=== PATIENT | male | born 1950 | race Caucasian/White ===

== ENCOUNTER 2017-04-07 18:47 | Emergency (ER) | payer OTHER, BC ==
[~2017-04-07] VITALS: Ht 180.3 cm; Wt 95.4 kg
[2017-04-07 20:57] LABS: MCH 28.4 PG (29.0-34.0); MCHC 33.3 G/DL (30.0-36.0); MCV 85.3 FL (86-99); MEAN PLAT.VOLUME 10.1 uM^3 (9.0-12.4); PLATELET COUNT 262 K/uL (156-360); RBC DIS.WIDTH-CV 13.7 % (11.8-14.6); RBC DIS.WIDTH-SD 42.6 % (39-53); RED BLOOD COUNT 5.04 M/uL (4.00-5.50); WHITE BLOOD COUNT 10.8 K/uL (4.1-10.2)
[2017-04-07 21:05] LABS: ADD MIUA? YES; BILIRUBIN NEGATIVE; BLOOD NEGATIVE; COLOR STRAW ((YELLOW)); GLUCOSE (STRIP) NEGATIVE; KETONES NEGATIVE; LEUKOCYTES MODERATE; NITRITE NEGATIVE; PROTEIN (STRIP) NEGATIVE; SPECIFIC GRAVITY 1.004 (1.000-1.030); UROBILINOGEN 0.2 MG/DL (0.2-1.0)
[2017-04-07 21:07] LABS: CHLORIDE 108 mEq/L (99-109); SODIUM 142 mEq/L (136-147)
[2017-04-07 21:09] LABS: BACTERIA RARE /HPF; EPITHELIAL CELLS NONE SEEN /HPF; MUCUS NONE SEEN /LPF; RED BLOOD CELLS 0-5 /HPF (0-5); WHITE BLOOD CELLS 0-5 /HPF (0-5)
[2017-04-07 21:10] LABS: GLUCOSE 137 mg/dL (70-99)
[2017-04-07 21:11] LABS: ANION GAP 10 MEQ/L (2-14)
[2017-04-07 21:12] LABS: TOTAL BILIRUBIN 0.5 mg/dL (0.0-1.0)
[2017-04-07 21:13] LABS: ALKALINE PHOSPHATASE 167 IU/L (3-129); GFR ESTIMATE (CALCULATED) > 59 mL/min/
[2017-04-07 21:14] LABS: UREA NITROGEN (BUN) 17 mg/dL (9-23)
[2017-04-07 21:17] LABS: LIPASE 53 U/L (1.0-51.0)
[2017-04-07] MEDS ORDERED: MOTRIN600 MG PO (22:35)
[2017-04-07] MEDS ORDERED: ULTRACET1 TABLET PO (22:35)
[2017-04-07 23:07] VITALS: BP 132/70
== END 2017-04-07 23:07 | disposition home or self-care (01) ==
LOC: EME 18:47
PROVIDERS: Physician Assistant
DX: S40.022A Contusion of left upper arm, initial encounter (principal); S30.1XXA Contusion of abdominal wall, initial encounter; V49.40XA Driver injured in collision with unspecified motor vehicles in traffic accident, initial encounter; E11.9 Type 2 diabetes mellitus without complications; E03.9 Hypothyroidism, unspecified; I10 Essential (primary) hypertension
CPT/HCPCS: 73060; 74177; 80053; 81003; 83690; 85027; 99281; 99284; J3010; J7030

== ENCOUNTER 2017-04-10 07:20 | Inpatient (IN) | payer OTHER, BC ==
[~2017-04-10] VITALS: Ht 180.3 cm; Wt 103.5 kg
[~2017-04-10 07:20] MED LIST: MOTRIN600 MG PO; ULTRACET1 TABLET PO
[2017-04-10 08:03] LABS: HEMATOCRIT 44.6 % (38.0-50.0); MCHC 33.9 G/DL (30.0-36.0); MCV 85.8 FL (86-99); PLATELET COUNT 296 K/uL (156-360); RBC DIS.WIDTH-CV 13.8 % (11.8-14.6); RBC DIS.WIDTH-SD 42.8 % (39-53); WHITE BLOOD COUNT 12.8 K/uL (4.1-10.2)
[2017-04-10 08:28] LABS: CHLORIDE 105 mEq/L (99-109); SODIUM 141 mEq/L (136-147)
[2017-04-10 08:30] LABS: GLUCOSE 177 mg/dL (70-99)
[2017-04-10 08:31] LABS: ANION GAP 9 MEQ/L (2-14)
[2017-04-10 08:34] LABS: ALKALINE PHOSPHATASE 158 IU/L (3-129); GFR ESTIMATE (CALCULATED) > 59 mL/min/; TOTAL BILIRUBIN 0.8 mg/dL (0.0-1.0)
[2017-04-10 08:35] LABS: UREA NITROGEN (BUN) 22 mg/dL (9-23)
[2017-04-10 11:00] LABS: ADD MIUA? YES; BILIRUBIN NEGATIVE; BLOOD NEGATIVE; COLOR YELLOW ((YELLOW)); GLUCOSE (STRIP) NEGATIVE; KETONES NEGATIVE; LEUKOCYTES MODERATE; NITRITE NEGATIVE; PROTEIN (STRIP) 30; SPECIFIC GRAVITY 1.018 (1.000-1.030); UROBILINOGEN 0.2 MG/DL (0.2-1.0)
[2017-04-10 11:07] LABS: BACTERIA NONE SEEN /HPF; CALCIUM OXALATE CRYSTALS 1+ /HPF; EPITHELIAL CELLS NONE SEEN /HPF; MUCUS 2+ /LPF; RED BLOOD CELLS 0-5 /HPF (0-5); UCUL ADDED? NO; WHITE BLOOD CELLS 20-30 /HPF (0-5)
[2017-04-10 12:01] LABS: LIPASE 441 U/L (1.0-51.0)
[2017-04-10] MEDS ORDERED: VICTOZA0.6 MG/0.1 SC (14:12)
[2017-04-10] MEDS ORDERED: SYNTHROID25 MCG PO (14:12)
[2017-04-10] MEDS ORDERED: LISINOPRIL5 MG PO (14:12)
[2017-04-10] MEDS ORDERED: ESOMEPRAZOLE MA40 MG PO (14:13)
[2017-04-10] MEDS ORDERED: ROSUVASTATIN CAL5 MG PO (14:13)
[2017-04-10] MEDS ORDERED: FISH OIL 1,0001 EAC7 PO (14:14)
[2017-04-10] MEDS ORDERED: VITAMIN E400 UNIT PO (14:14)
[2017-04-10] MEDS ORDERED: OMEGA 3 500 SO1 EACH PO (14:15)
[2017-04-10] MEDS ORDERED: FIBER THERAPY0.52 GM PO (14:16)
[2017-04-10] MEDS ORDERED: PROBIOTIC1 EAC7 PO (14:17)
[2017-04-10] MEDS ORDERED: ADVIL,NUPRIN,M200 MG PO (14:17)
[2017-04-10] MEDS ORDERED: SUPHEDRINE PE10 MG PO (14:18)
[2017-04-10 16:43] VITALS: BP 148/80
[2017-04-10 18:19] LABS: POINT-OF-CARE METER ID UU14208753
[2017-04-10 20:26] VITALS: BP 133/77
[2017-04-10 23:39] VITALS: BP 149/78
[2017-04-11 04:00] VITALS: BP 125/78
[2017-04-11 07:32] VITALS: BP 137/82
[2017-04-11 09:44] LABS: HEMATOCRIT 40.1 % (38.0-50.0); MCH 29.6 PG (29.0-34.0); MCHC 34.4 G/DL (30.0-36.0); MCV 85.9 FL (86-99); MEAN PLAT.VOLUME 10.1 uM^3 (9.0-12.4); PLATELET COUNT 253 K/uL (156-360); RBC DIS.WIDTH-CV 13.9 % (11.8-14.6); RBC DIS.WIDTH-SD 43.3 % (39-53); RED BLOOD COUNT 4.67 M/uL (4.00-5.50); WHITE BLOOD COUNT 6.9 K/uL (4.1-10.2)
[2017-04-11 10:48] LABS: ANION GAP 11 MEQ/L (2-14); CHLORIDE 106 MEQ/L (99-109); GFR ESTIMATE (CALCULATED) > 59 mL/min/; SAMPLE HEMOLYSIS CHECK 0; SAMPLE ICTERIC CHECK 0; SAMPLE LIPEMIA CHECK 0; SODIUM 141 MEQ/L (136-147); UREA NITROGEN (BUN) 16 mg/dL (9-23)
[2017-04-11 10:49] LABS: GLUCOSE 96 mg/dL (70-99)
[2017-04-11 11:34] LABS: LIPASE 48 U/L (1.0-51.0)
[2017-04-11 11:52] VITALS: BP 128/73
[2017-04-11 16:05] VITALS: BP 136/69
[2017-04-11 19:37] VITALS: BP 120/71
[2017-04-11 21:04] LABS: TRIGLYCERIDES 236 MG/DL (Normal: <150)
[2017-04-11 21:45] LABS: POINT-OF-CARE METER ID UU14149397
[2017-04-11 23:15] VITALS: BP 142/78
[2017-04-12 03:47] VITALS: BP 155/90
[2017-04-12 08:01] VITALS: BP 150/87
[2017-04-12 10:37] LABS: HEMATOCRIT 40.7 % (38.0-50.0); MCH 28.8 PG (29.0-34.0); MCHC 33.9 G/DL (30.0-36.0); MEAN PLAT.VOLUME 10.1 uM^3 (9.0-12.4); PLATELET COUNT 272 K/uL (156-360); RBC DIS.WIDTH-CV 13.4 % (11.8-14.6); RBC DIS.WIDTH-SD 42.2 % (39-53); RED BLOOD COUNT 4.79 M/uL (4.00-5.50); WHITE BLOOD COUNT 5.9 K/uL (4.1-10.2)
[2017-04-12 11:02] LABS: ANION GAP 7 MEQ/L (2-14); CHLORIDE 106 MEQ/L (99-109); GFR ESTIMATE (CALCULATED) > 59 mL/min/; GLUCOSE 212 mg/dL (70-99); POTASSIUM 3.9 MEQ/L (3.7-5.4); SAMPLE HEMOLYSIS CHECK 0; SAMPLE ICTERIC CHECK 0; SAMPLE LIPEMIA CHECK 0; SODIUM 139 MEQ/L (136-147); UREA NITROGEN (BUN) 14 mg/dL (9-23)
[2017-04-12 11:42] LABS: ADD MIUA? YES; BILIRUBIN NEGATIVE; BLOOD NEGATIVE; COLOR STRAW ((YELLOW)); GLUCOSE (STRIP) 50; KETONES NEGATIVE; LEUKOCYTES SMALL; NITRITE NEGATIVE; PROTEIN (STRIP) NEGATIVE; SPECIFIC GRAVITY 1.008 (1.000-1.030); UROBILINOGEN 0.2 MG/DL (0.2-1.0)
[2017-04-12 11:47] LABS: BACTERIA NONE SEEN /HPF; EPITHELIAL CELLS NONE SEEN /HPF; MUCUS NONE SEEN /LPF; RED BLOOD CELLS NONE SEEN /HPF (0-5); UCUL ADDED? NO; WHITE BLOOD CELLS 0-5 /HPF (0-5)
[2017-04-12 11:52] VITALS: BP 129/81
== END 2017-04-12 15:32 | disposition home or self-care (01) | DRG 439 ==
LOC: EME 07:20 → 3EAST 14:13 → EDOF 14:13 → 3EAST 16:11
PROVIDERS: Internal Medicine; Physician Assistant
DX: K85.90 Acute pancreatitis without necrosis or infection, unspecified (principal); N39.0 Urinary tract infection, site not specified; E11.9 Type 2 diabetes mellitus without complications; I10 Essential (primary) hypertension; K21.9 Gastro-esophageal reflux disease without esophagitis; E78.1 Pure hyperglyceridemia; E78.5 Hyperlipidemia, unspecified; E03.9 Hypothyroidism, unspecified; E66.9 Obesity, unspecified; R79.89 Other specified abnormal findings of blood chemistry; Z86.711 Personal history of pulmonary embolism; Z68.31 Body mass index [BMI] 31.0-31.9, adult
CPT/HCPCS: 74177; 76705; 80048; 80053; 81003; 82948; 83690; 84478; 85027; 87086; 99281; 99284; J1650; J1815; J1956; J2060; J2270; J2405; J7030; S0028